=== PATIENT | female | born 1985 ===

== ENCOUNTER 2023-07-25 08:56 | Outpatient (CLI) | payer OTHER | END 2023-07-25 09:15 | disposition home or self-care (01) | LOC: RX STUDY 08:56 | PROVIDERS: ATTEND Obstetrics & Gynecology Reproductive Endocrinology | DX: N93.0 Postcoital and contact bleeding (principal) ==

== ENCOUNTER 2023-12-27 13:26 | Outpatient (CLI) | payer OTHER | END 2023-12-27 13:28 | disposition home or self-care (01) | LOC: SONOGRAMA 13:26 | PROVIDERS: ATTEND Pathology Anatomic Pathology & Clinical Pathology | DX: C73 Malignant neoplasm of thyroid gland (principal); E07.89 Other specified disorders of thyroid; D34 Benign neoplasm of thyroid gland; D44.0 Neoplasm of uncertain behavior of thyroid gland ==